=== PATIENT | male | born 1990 | race Caucasian/White ===

== ENCOUNTER 2018-07-02 18:20 | Emergency (ER) | payer MEDICAID, OTHER ==
[2018-07-02 18:28] VITALS: BP 132/89
[2018-07-02] MEDS ORDERED: Cyclobenzaprine TAB* 10 MG PO ONE (18:46)
[2018-07-02] MEDS ORDERED: Ibuprofen TAB* 400 MG PO ONE (18:46)
--- NOTE | 2018-07-02 18:51 | UC ---
Back Pain HPI - HPI Summary HPI Summary: fall 1 week ago on ice landing flat on his back, no loc no pain or weakness in his extremities----muscle on back sides of his spine hurt "and lock up" after working all day--- - History of Current Complaint Chief Complaint: UCBackPain Stated Complaint: BACK PAIN Time Seen by Provider: 07/02/18 18:34 Hx Obtained From: Patient Onset/Duration: Sudden Onset, Lasting Weeks - 1 Timing: Constant Pain Intensity: 8 Pain Scale Used: 0-10 Numeric Back Pain: Is Discrete @ Character: Aching, Stiffness Aggravating Factor(s): Movement, Other - working Alleviating Factor(s): Nothing Associated Signs And Symptoms: Positive: Negative - Allergies/Home Medications Allergies/Adverse Reactions: Allergies Allergy/AdvReac Type Severity Reaction Status Date / Time No Known Allergies Allergy Verified 07/02/18 18:28 PMH/Surg Hx/FS Hx/Imm Hx Previously Healthy: Yes - Surgical History Surgical History: Yes Surgery Procedure, Year, and Place: EAR TUBES. DEVIATED SEPTUM REPAIR. LEFT ANKLE - Family History Known Family History: Positive: Unknown - Patient is adopted, unsure of his FHx. , Other - Bipolar disorder, depression, alcoholism, gram w/ ovarian ca - Social History Occupation: Employed Full-time Lives: With Family Alcohol Use: None Alcohol Amount: no alcohol for 3 months Substance Use Type: None Smoking Status (MU): Current Every Day Smoker Type: Cigarettes Amount Used/How Often: 2-3 CIG/DAY Review of Systems All Other Systems Reviewed And Are Negative: Yes Constitutional: Positive: Negative Skin: Positive: Negative Eyes: Positive: Negative ENT: Positive: Negative Respiratory: Positive: Negative Cardiovascular: Positive: Negative Gastrointestinal: Positive: Negative Genitourinary: Positive: Negative Motor: Positive: Negative Neurovascular: Positive: Negative Musculoskeletal: Positive: Arthralgia - mid back, Myalgia Neurological: Positive: Negative Psychological: Positive: Negative Is Patient Immunocompromised?: No Physical Exam Triage Information Reviewed: Yes Appearance: Well-Appearing, No Pain Distress, Well-Nourished Vital Signs: Initial Vital Signs Temp 97.8 F 07/02/18 18:25 Pulse 102 07/02/18 18:25 Resp 18 07/02/18 18:25 BP 132/89 07/02/18 18:25 Pulse Ox 99 07/02/18 18:25 Vital Signs Reviewed: Yes Eye Exam: Normal Eyes: Positive: Conjunctiva Clear ENT Exam: Normal ENT: Positive: Normal ENT inspection, Hearing grossly normal. Negative: Trismus , Muffled voice, Hoarse voice Dental Exam: Normal Neck exam: Normal Neck: Positive: Supple, Nontender, No Lymphadenopathy Respiratory Exam: Normal Respiratory: Positive: Chest non-tender, Lungs clear, Normal breath sounds, No respiratory distress, No accessory muscle use Cardiovascular Exam: Normal Cardiovascular: Positive: RRR, No Murmur, Pulses Normal, Brisk Capillary Refill Musculoskeletal Exam: Normal Musculoskeletal: Positive: Strength Intact, ROM Intact, No Edema Neurological Exam: Normal Neurological: Positive: Alert, Muscle Tone Normal Psychological Exam: Normal Skin Exam: Normal Diagnostics - Radiology No standard instances Radiology Interpretation Completed By: ED Physician Summary of Radiographic Findings: possible lumbar compression Back Pain Course/Dx - Course Course Of Treatment: nsaids, flexeril follow with pcp back exercises - Differential Dx/Diagnosis Provider Diagnosis: Back pain Discharge - Sign-Out/Discharge Documenting (check all that apply): Patient Departure All imaging exams completed and their final reports reviewed: No - Discharge Plan Condition: Stable Disposition: HOME Prescriptions: Cyclobenzaprine TAB* [Flexeril 10 MG TAB*] 10 mg PO TID PRN #15 tab PRN Reason: muscle spasm Ibuprofen TAB* [Motrin TAB* 800 MG] 800 mg PO Q8H PRN #30 tab PRN Reason: pain Patient Education Materials: Core Strengthening Exercises (GEN), Back Pain (ED) Referrals: Care [facility] [Outside] - 3 Days - Billing Disposition and Condition Condition: STABLE Disposition: Home
--- NOTE | 2018-07-03 07:15 | ED ---
Progress - Progress Note Progress Note: Final x-ray read of the T-spine: No fracture Preliminary read as possible lumbar compression RN to call the patient and advise on final results Course/Dx - Course Course Of Treatment: nsaids, flexeril follow with pcp back exercises - Diagnoses Provider Diagnoses: Back pain Discharge - Sign-Out/Discharge Documenting (check all that apply): Post-Discharge Follow Up All imaging exams completed and their final reports reviewed: Yes - Discharge Plan Condition: Stable Disposition: HOME Prescriptions: Cyclobenzaprine TAB* [Flexeril 10 MG TAB*] 10 mg PO TID PRN #15 tab PRN Reason: muscle spasm Ibuprofen TAB* [Motrin TAB* 800 MG] 800 mg PO Q8H PRN #30 tab PRN Reason: pain Patient Education Materials: Back Pain (ED), Core Strengthening Exercises (GEN) Referrals: [facility] [Outside] - 3 Days - Billing Disposition and Condition Condition: STABLE Disposition: Home
== END 2018-07-02 19:31 | disposition home or self-care (01) ==
LOC: UCEAST 18:20
DX: M54.9 Dorsalgia, unspecified (principal); F17.210 Nicotine dependence, cigarettes, uncomplicated
CPT/HCPCS: 72080; 99212; A9270-GY; G0463

== ENCOUNTER 2018-11-29 19:19 | Emergency (ER) | payer MEDICAID, OTHER ==
[2018-11-29 19:31] VITALS: BP 112/66
[2018-11-29] MEDS ORDERED: Famotidine TAB* 20 MG PO ONE (21:20)
[2018-11-29] MEDS ORDERED: Ondansetron ODT TAB* 4 MG PO ONE (21:20)
--- NOTE | 2018-11-29 21:20 | UC ---
Abdominal Pain Male HPI - HPI Summary HPI Summary: 28-year-old male comes in with a chief complaint of intermittent epigastric pain nausea and vomiting. Been going on for weeks is been getting worse. Every time he eats something spicy he gets epigastric pain and nausea sometimes he vomits. No fevers or chills. No lower abdominal pain. Pepto-Bismol does help some with the pain. Eating non-spicy things does not bother her stomach. No blood in the vomit or in his stools. - History of Current Complaint Chief Complaint: UCGeneralIllness Stated Complaint: NAUSEA Time Seen by Provider: 11/29/18 21:07 Pain Intensity: 0 - Allergies/Home Medications Allergies/Adverse Reactions: Allergies Allergy/AdvReac Type Severity Reaction Status Date / Time No Known Allergies Allergy Verified 11/29/18 19:31 PMH/Surg Hx/FS Hx/Imm Hx Previously Healthy: Yes - Surgical History Surgical History: Yes Surgery Procedure, Year, and Place: EAR TUBES. DEVIATED SEPTUM REPAIR. LEFT ANKLE - Family History Known Family History: Positive: Unknown - Patient is adopted, unsure of his FHx. , Other - Bipolar disorder, depression, alcoholism, gram w/ ovarian ca - Social History Alcohol Use: Occasionally Alcohol Amount: drank last night Substance Use Type: None Smoking Status (MU): Light Every Day Tobacco Smoker Type: Cigarettes Amount Used/How Often: 2-3 CIG/DAY Review of Systems All Other Systems Reviewed And Are Negative: Yes Constitutional: Positive: Negative Skin: Positive: Negative Eyes: Positive: Negative ENT: Positive: Negative Respiratory: Positive: Negative Cardiovascular: Positive: Negative Gastrointestinal: Positive: Abdominal Pain, Vomiting, Nausea Genitourinary: Positive: Negative Motor: Positive: Negative Neurovascular: Positive: Negative Musculoskeletal: Positive: Negative Neurological: Positive: Negative Psychological: Positive: Negative Is Patient Immunocompromised?: No Physical Exam Triage Information Reviewed: Yes Appearance: Well-Appearing, No Pain Distress, Well-Nourished Vital Signs: Initial Vital Signs Temp 98.5 F 11/29/18 19:26 Pulse 77 11/29/18 19:26 Resp 12 11/29/18 19:26 BP 112/66 11/29/18 19:26 Pulse Ox 98 11/29/18 19:26 Vital Signs Reviewed: Yes Eye Exam: Normal Eyes: Positive: Conjunctiva Clear Neck: Positive: Supple Respiratory: Positive: Lungs clear, Normal breath sounds, No respiratory distress Cardiovascular: Positive: RRR Abdomen Description: Positive: Soft, Other: - MILD TENDERNESS EPIGASTRIUM. Negative: CVA Tenderness (R), CVA Tenderness (L) Bowel Sounds: Positive: Present Musculoskeletal Exam: Normal Musculoskeletal: Positive: Strength Intact, ROM Intact Neurological Exam: Normal Neurological: Positive: Alert, Muscle Tone Normal Psychological Exam: Normal Psychological: Positive: Age Appropriate Behavior Skin Exam: Normal Abd Pain Male Course/Dx - Differential Dx/Clinical Impression Provider Diagnosis: Epigastric pain, Nausea & vomiting, GERD (gastroesophageal reflux disease) Discharge - Sign-Out/Discharge Documenting (check all that apply): Patient Departure All imaging exams completed and their final reports reviewed: No Studies - Discharge Plan Condition: Stable Disposition: HOME Prescriptions: Omeprazole 20 mg PO BID #30 capsule. Ondansetron ODT TAB* [Zofran 4 MG Odt TAB*] 4 mg PO Q6H PRN #10 tab.odt PRN Reason: Nausea Patient Education Materials: Gastroesophageal Reflux Disease (ED), Acute Nausea and Vomiting (ED), Epigastric Pain (ED) Referrals: [facility] [place] [facility]IAN REFERRAL [Outside] [facility] [Provider Group] Additional Instructions: FOLLOW UP WITH YOUR DOCTOR. GO TO THE EMERGENCY DEPARTMENT IF YOUR CONDITION WORSENS; PAIN, FEVER, BLOOD IN YOUR VOMIT OR STOOL, YOU FEEL ILL OR ANY QUESTIONS OR CONCERNS. - Billing Disposition and Condition Condition: STABLE Disposition: Home
== END 2018-11-29 21:40 | disposition home or self-care (01) ==
LOC: UCEAST 19:19
DX: R10.13 Epigastric pain (principal); R11.2 Nausea with vomiting, unspecified; K21.9 Gastro-esophageal reflux disease without esophagitis; F17.210 Nicotine dependence, cigarettes, uncomplicated
CPT/HCPCS: 99212; A9270-GY; G0463

== ENCOUNTER → 2018-12-11 | Emergency (ER) | payer OTHER ==
[~2018-12-11] MED LIST: Fluconazole 150 MG TAB PO ONE; Ketorolac INJ* 30 MG/ML 1 ML VIAL IV PUSH ONE; Morphine 4 MG/ML VIAL (1 ml) 4 MG/ML VIAL IV ONE; NS 0.9% 1000 ML** 1,000 ML IV ONE; Ondansetron INJ* 2 MG/ML VIAL IV ONE; oxyCODONE/Acetamin 5/325 MG* TAB PO ONE
[2018-12-11 14:33] LABS: ABS Basophils 0.1 10^3/ul (0-0.2); ABS Lymphocytes 1.8 10^3/ul (1.0-4.8); ABS Monocytes 0.4 10^3/ul (0-0.8); ABS Neutrophils 4.2 10^3/ul (1.5-7.7); Eosinophil % 0.3 %; Hematocrit 49 % (42-52); Hemoglobin 16.4 g/dL (14.0-18.0); Lymphocyte % 27.8 %; Mean Corpuscular HGB Conc 34 g/dL (31-36); Mean Corpuscular Hemoglobin 30 pg (27-31); Mean Corpuscular Volume 90 fL (80-94); Mean Platelet Volume 8.4 fL (7.4-10.4); Platelet Count 238 10^3/uL (150-450); Red Blood Count 5.39 10^6 /uL (4.18-5.48); Red Cell Distribution Width 14 % (10-15); White Blood Count 6.5 10^3/uL (3.5-10.8)
[2018-12-11 14:40] LABS: Activated Partial Thrombo Time 31.5 seconds (26.0-38.0); INR 0.97 (0.82-1.09)
[2018-12-11 14:43] LABS: ALT 29 U/L (7-52); AST 18 U/L (13-39); Albumin/Globulin Ratio 2.1 (1-3); Alkaline Phosphatase 44 U/L (34-104); Anion Gap 8 mmol/L (2-11); Blood Urea Nitrogen 7 mg/dL (6-24); C Reactive Protein < 1.00 mg/L (<8.01); CO2 Carbon Dioxide 26 mmol/L (22-32); Calcium 9.7 mg/dL (8.6-10.3); Chloride 107 mmol/L (101-111); EGFR African American 125.7 (>60); EGFR Non-African American 103.9 (>60); Globulin 2.4 g/dL (2-4); Glucose 104 mg/dL (70-100); Sodium 141 mmol/L (135-145); Total Protein 7.4 g/dL (6.4-8.9)
--- NOTE | 2018-12-11 15:08 | ED ---
GI/ HPI - HPI Summary HPI Summary: This patient is a 28 year old M presenting to ED with a chief complaint of R flank pain that radiates into the R testicle since yesterday. The pain has worsened throughout the day. The pain is described as stabbing. Patient has a history of kidney stones and reports this feels similar. He took Ibuprofen yesterday without relief. The patient rates the pain 10/10 in severity. Symptoms aggravated by nothing. Symptoms alleviated by nothing. Patient reports urinary urgency, hematuria, fevers, chills. Patient denies N/V. - History of Current Complaint Chief Complaint: EDFlankPain Time Seen by Provider: 12/11/18 14:46 Stated Complaint: PASSING A KIDNEY STONE PER PT Hx Obtained From: Patient Onset/Duration: Started Days Ago - Yesteray, Still Present, Worse Since Timing: Constant Severity: Severe Current Severity: Severe Pain Intensity: 10 Location of Pain: Radiates to: - R testicle, Flank - R Pain Characteristics: Other: - Stabbing Associated Signs and Symptoms: Positive: Fever, Hematuria, Flank Pain, Chills, Other: - Urgency. Negative: Nausea, Vomiting Aggravating Factor(s): Nothing Alleviating Factor(s): Nothing - Allergy/Home Medications Allergies/Adverse Reactions: Allergies Allergy/AdvReac Type Severity Reaction Status Date / Time No Known Allergies Allergy Verified 12/11/18 11:00 Home Medications: Home Medications hydrOXYzine HCL TAB* [Atarax TAB 50 MG *] 50 mg PO BEDTIME 12/11/18 [History Confirmed 12/11/18] PMH/Surg Hx/FS Hx/Imm Hx Endocrine/Hematology History: Denies: Hx Diabetes Cardiovascular History: Denies: Hx Congestive Heart Failure, Hx Hypertension Respiratory History: Reports: Hx Asthma History: Denies: Hx Renal Disease Psychiatric History: Reports: Hx of Violent Episodes Against Others, Hx Substance Abuse - ETOH Denies: Hx Eating Disorder - Surgical History Surgery Procedure, Year, and Place: EAR TUBES. DEVIATED SEPTUM REPAIR. LEFT ANKLE - Immunization History Date of Tetanus Vaccine: up to date Infectious Disease History: No Infectious Disease History: Denies: Traveled Outside the [place] in Last 30 Days - Family History Known Family History: Positive: Unknown - Patient is adopted, unsure of his FHx. , Other - Bipolar disorder, depression, alcoholism, gram w/ ovarian ca - Social History Alcohol Use: Occasionally Alcohol Amount: drank last night Hx Substance Use: Yes Substance Use Type: Reports: None Hx Tobacco Use: Yes Smoking Status (MU): Light Every Day Tobacco Smoker Type: Cigarettes Amount Used/How Often: 2-3 CIG/DAY Review of Systems Positive: Fever, Chills Negative: Vomiting, Nausea Positive: flank pain - R, hematuria, urgency All Other Systems Reviewed And Are Negative: Yes Physical Exam - Summary Physical Exam Summary: GENERAL: Patient is a well-developed and nourished M who is lying uncomfortably on the stretcher secondary to pain HEAD AND FACE: Normocephalic EYES: PERRLA, EOMI x 2. EARS: Hearing grossly intact. MOUTH: Oropharynx within normal limits. NECK: Supple, trachea is midline, no adenopathy, no JVD, no carotid bruit. CHEST: Symmetric, no tenderness at palpation LUNGS: Clear to auscultation bilaterally. No wheezing or crackles. CVS: Regular rate and rhythm, S1 and S2 present, no murmurs or gallops appreciated. ABDOMEN: Soft, non-tender. Bowel sounds are normal. No abnormal abdominal pulsations. EXTREMITIES: Full ROM in all major joints, no edema, no cyanosis or clubbing. NEURO: Alert and oriented x 3. No acute neurological deficits. Speech is normal and follows commands. SKIN: Dry and warm Triage Information Reviewed: Yes Vital Signs On Initial Exam: Initial Vitals Temp Pulse Resp BP Pulse Ox 99.7 F 72 16 142/95 99 12/11/18 10:57 12/11/18 10:57 12/11/18 10:57 12/11/18 10:57 12/11/18 10:57 Vital Signs Reviewed: Yes Diagnostics - Vital Signs Vital Signs Temp Pulse Resp BP Pulse Ox 12/11/18 12:50 98.9 F 58 17 127/92 100 12/11/18 10:57 99.7 F 72 16 142/95 99 - Laboratory Lab Results: Lab Results 12/11/18 12/11/18 12/11/18 Range/Units 14:10 14:10 14:10 WBC 6.5 (3.5-10.8) 10^3/uL RBC 5.39 (4.18-5.48) 10^6 /uL Hgb 16.4 (14.0-18.0) g/dL Hct 49 (42-52) % MCV 90 (80-94) fL MCH 30 (27-31) pg MCHC 34 (31-36) g/dL RDW 14 (10-15) % Plt Count 238 (150-450) 10^3/uL MPV 8.4 (7.4-10.4) fL Neut % (Auto) 64.9 % Lymph % (Auto) 27.8 % [place] % (Auto) 5.9 % Eos % (Auto) 0.3 % Baso % (Auto) 1.1 % Absolute Neuts (auto) 4.2 (1.5-7.7) 10^3/ul Absolute Lymphs (auto) 1.8 (1.0-4.8) 10^3/ul Absolute Monos (auto) 0.4 (0-0.8) 10^3/ul Absolute Eos (auto) 0.0 (0-0.6) 10^3/ul Absolute Basos (auto) 0.1 (0-0.2) 10^3/ul Absolute Nucleated RBC 0.0 10^3/ul Nucleated RBC % 0.0 INR (Anticoag Therapy) (0.82-1.09) APTT (26.0-38.0) seconds Sodium 141 (135-145) mmol/L Potassium 4.0 (3.5-5.0) mmol/L Chloride 107 (101-111) mmol/L Carbon Dioxide 26 (22-32) mmol/L Anion Gap 8 (2-11) mmol/L BUN 7 (6-24) mg/dL Creatinine 0.88 (0.67-1.17) mg/dL Est GFR ( Amer) 125.7 (>60) Est GFR (Non-Af Amer) 103.9 (>60) BUN/Creatinine Ratio 8.0 (8-20) Glucose 104 H (70-100) mg/dL Lactic Acid 1.1 (0.5-2.0) mmol/L Calcium 9.7 (8.6-10.3) mg/dL Total Bilirubin 0.90 (0.2-1.0) mg/dL AST 18 (13-39) U/L ALT 29 (7-52) U/L Alkaline Phosphatase 44 (34-104) U/L C-Reactive Protein < 1.00 (<8.01) mg/L Total Protein 7.4 (6.4-8.9) g/dL Albumin 5.0 (3.2-5.2) g/dL Globulin 2.4 (2-4) g/dL Albumin/Globulin Ratio 2.1 (1-3) Lipase 32 (11.0-82.0) U/L Blood Type Antibody Screen 12/11/18 12/11/18 Range/Units 14:11 14:11 WBC (3.5-10.8) 10^3/uL RBC (4.18-5.48) 10^6 /uL Hgb (14.0-18.0) g/dL Hct (42-52) % MCV (80-94) fL MCH (27-31) pg MCHC (31-36) g/dL RDW (10-15) % Plt Count (150-450) 10^3/uL MPV (7.4-10.4) fL Neut % (Auto) % Lymph % (Auto) % [place] % (Auto) % Eos % (Auto) % Baso % (Auto) % Absolute Neuts (auto) (1.5-7.7) 10^3/ul Absolute Lymphs (auto) (1.0-4.8) 10^3/ul Absolute Monos (auto) (0-0.8) 10^3/ul Absolute Eos (auto) (0-0.6) 10^3/ul Absolute Basos (auto) (0-0.2) 10^3/ul Absolute Nucleated RBC 10^3/ul Nucleated RBC % INR (Anticoag Therapy) 0.97 (0.82-1.09) APTT 31.5 (26.0-38.0) seconds Sodium (135-145) mmol/L Potassium (3.5-5.0) mmol/L Chloride (101-111) mmol/L Carbon Dioxide (22-32) mmol/L Anion Gap (2-11) mmol/L BUN (6-24) mg/dL Creatinine (0.67-1.17) mg/dL Est GFR ( Amer) (>60) Est GFR (Non-Af Amer) (>60) BUN/Creatinine Ratio (8-20) Glucose (70-100) mg/dL Lactic Acid (0.5-2.0) mmol/L Calcium (8.6-10.3) mg/dL Total Bilirubin (0.2-1.0) mg/dL AST (13-39) U/L ALT (7-52) U/L Alkaline Phosphatase (34-104) U/L C-Reactive Protein (<8.01) mg/L Total Protein (6.4-8.9) g/dL Albumin (3.2-5.2) g/dL Globulin (2-4) g/dL Albumin/Globulin Ratio (1-3) Lipase (11.0-82.0) U/L Blood Type A Positive Antibody Screen Pending Result Diagrams: 12/11/18 14:10 12/11/18 14:10 Lab Statement: Any lab studies that have been ordered have been reviewed, and results considered in the medical decision making process. - CT A/P CT Interpretation Completed By: Radiologist Summary of CT Findings: Calculus in the mid right ureter at L3-L4 level measuring up to 2 mm. Right hydronephrosis and hydroureter is noted. Dr. Nieto has reviewed this radiology report. GIGU Course/Dx - Course Course Of Treatment: This patient is a 28 year old M presenting to ED with a chief complaint of R flank pain that radiates into the R testicle since yesterday. CT A/P revealed Calculus in the mid right ureter at L3-L4 level measuring up to 2 mm. Right hydronephrosis and hydroureter is noted. In the ED course, patient received Toradol, fluids, Zofran, and Diflucan. Blood work and UA obtained. I discussed results with patient, and he reports feeling better. He is hemodynamically stable and safe for discharge. Strict return precautions given and he will otherwise follow up with his PCP. Patient will be discharged home with dx of kidney stone. - Diagnoses Provider Diagnoses: Kidney stone Discharge - Sign-Out/Discharge Documenting (check all that apply): Patient Departure - Discharge Patient Received Moderate/Deep Sedation with Procedure: No - Discharge Plan Condition: Stable Disposition: HOME Prescriptions: Ibuprofen 800 mg PO TID #24 tablet oxyCODONE/Acetamin 5/325 MG* [Percocet 5/325 TAB*] 1 tab PO Q6H PRN #12 tab MDD 4 PRN Reason: Pain Tamsulosin HCl [Flomax] 0.4 mg PO DAILY #30 cap.er.24h Patient Education Materials: Kidney Stones (ED) Referrals: [facility] [place] [facility] REFERRAL [Outside] - 3 Days Additional Instructions: Follow up with your primary care physician in 1-3 days. RETURN TO THE EMERGENCY DEPARTMENT FOR CHANGING OR WORSENING SYMPTOMS. - Billing Disposition and Condition Condition: STABLE Disposition: Home - Attestation Statements Document Initiated by Scribe: Yes Documenting Scribe: Ishan Cunha Provider For Whom Scribe is Documenting (Include Credential): Olman Nieto MD Scribe Attestation: Ishan Olivia, scribed for Olman Nieto MD on 12/13/18 at 0751. Scribe Documentation Reviewed: Yes Provider Attestation: The documentation as recorded by the Ishan gar accurately reflects the service I personally performed and the decisions made by , Olman Nieto MD Status of Scribe Document: Viewed
[2018-12-11 17:06] LABS: Urine Appearance Clear; Urine Bacteria Absent (Absent); Urine Bilirubin Negative (Negative); Urine Blood 3+ (Negative); Urine Color Yellow; Urine Glucose Negative (Negative); Urine Ketones Negative (Negative); Urine Nitrite Negative (Negative); Urine Protein Negative (Negative); Urine Red Blood Cell 3+(>10/hpf) (Absent); Urine Specific Gravity 1.011 (1.010-1.030); Urine Urobilinogen Negative (Negative); Urine White Blood Cell Trace(0-5/hpf) (Absent)
[2018-12-11 17:41] VITALS: BP 127/75
== END | disposition home or self-care (01) ==
LOC: ED 10:55
DX: N13.2 Hydronephrosis with renal and ureteral calculous obstruction (principal); F17.210 Nicotine dependence, cigarettes, uncomplicated; Z87.442 Personal history of urinary calculi
CPT/HCPCS: 36415; 74176; 80053; 81003; 81015; 83605; 83690; 85025; 85610; 85730; 86140; 86850; 86900; 86901; 87086; 96361; 96374; 96375; 99283; A9270-GY; J1885; J2270; J2405

== ENCOUNTER 2019-07-22 19:53 | Emergency (ER) | payer MEDICAID, OTHER ==
[2019-07-22 20:07] VITALS: BP 133/89
[2019-07-22] MEDS ORDERED: DOXYcycline CAP(*) 100 MG PO ONE ×2 (20:21→20:23)
[2019-07-22] MEDS ORDERED: hydrOXYzine HCL TAB* 25 MG PO ONE (20:22)
[2019-07-22] MEDS ORDERED: Neomyc/Polym/HC 1% OTIC SUSP* **OTIC LEFT EAR ONE (20:22)
--- NOTE | 2019-07-22 20:26 | UC ---
Ear Complaint HPI - HPI Summary HPI Summary: 29-year-old male comes in with a chief complaint of left ear pain. Started to 3 days ago. Is been getting worse. No fevers or chills. Patient reports he has a history of recurrent ear infections. He has had ear tubes in both the ears. 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 He believes it was treated successfully with doxycycline. Patient also reports having anxiety and panic attacks for the last 3 days. He wonders if it has to do with the ear pain. Patient does have a history of panic attacks although usually at home continue to bother him for several days. - History of Current Complaint Chief Complaint: UCEar Stated Complaint: EAR ACHE Time Seen by Provider: 07/22/19 19:54 Pain Intensity: 5 - Allergies/Home Medications Allergies/Adverse Reactions: Allergies Allergy/AdvReac Type Severity Reaction Status Date / Time No Known Allergies Allergy Verified 12/11/18 11:00 Home Medications: Home Medications DOXYcycline CAP(*) [DOXYcycline 100MG CAP(*)] 100 mg PO BID #18 cap 07/22/19 [Rx ] Ofloxacin 0.3% (Ear Drop)* [Floxin 0.3% OTIC.EDOUARD (Ear Drop)] 5 drop LEFT EAR BID #1 btl 07/22/19 [Rx] diphenhydrAMINE HCl [Z-Sleep] 07/22/19 [History] hydrOXYzine HCL TAB* [Atarax TAB 50 MG *] 50 mg PO QID PRN #20 tab 07/22/19 [Rx] PMH/Surg Hx/FS Hx/Imm Hx Previously Healthy: Yes - RECURRENT LEFT EAR INFECTIONS Other Endocrine History: LEFT EAR MRSA Psychological History: Anxiety Other Psychological History: PANIC ATTACKS - Surgical History Surgical History: None Surgery Procedure, Year, and Place: EAR TUBES. DEVIATED SEPTUM REPAIR. LEFT ANKLE - Family History Known Family History: Positive: Unknown - Patient is adopted, unsure of his FHx. , Other - Bipolar disorder, depression, alcoholism, gram w/ ovarian ca - Social History Alcohol Use: Occasionally Alcohol Amount: drank last night Substance Use Type: Marijuana Smoking Status (MU): Current Some Day Smoker Type: Cigarettes Amount Used/How Often: 2-3 CIG/DAY Review of Systems All Other Systems Reviewed And Are Negative: Yes Constitutional: Positive: Other - SEE HPI Skin: Positive: Negative Eyes: Positive: Negative ENT: Positive: Ear Ache Respiratory: Positive: Negative Cardiovascular: Positive: Negative Gastrointestinal: Positive: Negative Motor: Positive: Negative Neurovascular: Positive: Negative Musculoskeletal: Positive: Negative Neurological/Mental Status: Positive: Negative Psychological: Positive: Anxious Is Patient Immunocompromised?: No Physical Exam Triage Information Reviewed: Yes Appearance: Well-Appearing, No Pain Distress, Well-Nourished Vital Signs: Initial Vital Signs Temp 98.7 F 07/22/19 20:00 Pulse 61 07/22/19 20:00 Resp 16 07/22/19 20:00 BP 133/89 07/22/19 20:00 Pulse Ox 100 07/22/19 20:00 Vital Signs Reviewed: Yes Eye Exam: Normal Eyes: Positive: Conjunctiva Clear ENT: Positive: TM bulging - LEFT, TM red - LEFT, Other - Test palpation of the left tragus. Neck: Positive: Supple Respiratory: Positive: Lungs clear, Normal breath sounds, No respiratory distress Cardiovascular: Positive: RRR Musculoskeletal: Positive: Strength Intact, ROM Intact Neurological: Positive: Alert, Muscle Tone Normal Psychological: Positive: Normal Response To Family, Age Appropriate Behavior Skin Exam: Normal Ear Complaint Course/Dx - Course Course Of Treatment: Will treat with doxycycline as the patient reports he's had MRSA in that ear in the past and he believes it was doxycycline that treated successfully. Because of the tenderness to palpation of the tragus were also start antibiotic eardrops. To prescription for hydroxyzine to be used if needed for the anxiety and panic attacks. Also let the patient know that if anything got worse he needs to the emergency department. - Differential Dx/Diagnosis Provider Diagnosis: Left otitis media, Panic attacks Discharge ED - Sign-Out/Discharge Documenting (check all that apply): Patient Departure All imaging exams completed and their final reports reviewed: No Studies - Discharge Plan Condition: Stable Disposition: HOME Prescriptions: DOXYcycline CAP(*) [DOXYcycline 100MG CAP(*)] 100 mg PO BID #18 cap hydrOXYzine HCL TAB* [Atarax TAB 50 MG *] 50 mg PO QID PRN #20 tab PRN Reason: Anxiety Ofloxacin 0.3% (Ear Drop)* [Floxin 0.3% OTIC.EDOUARD (Ear Drop)] 5 drop LEFT EAR BID #1 btl Patient Education Materials: Ear Infection (ED), Panic Attack (ED) Referrals: Danny Solomon MD [Medical Doctor] - Jaxson Jeong MD [Medical Doctor] - Additional Instructions: FOLLOW UP WITH YOUR DOCTOR. FOLLOW UP WITH ENT. GO TO THE EMERGENCY DEPARTMENT IF NOT IMPROVED OR WORSE; PANIC ATTACKS, PAIN, FEVER, YOU FEEL ILL OR ANY QUESTIONS OR CONCERNS. - Billing Disposition and Condition Condition: STABLE Disposition: Home
== END 2019-07-22 20:38 | disposition home or self-care (01) ==
LOC: UCEAST 19:53
DX: H66.92 Otitis media, unspecified, left ear (principal); F41.0 Panic disorder [episodic paroxysmal anxiety]; F17.210 Nicotine dependence, cigarettes, uncomplicated; Z79.899 Other long term (current) drug therapy
CPT/HCPCS: 99213; A9270-GY; G0463

== ENCOUNTER 2019-07-27 22:12 | Emergency (ER) | payer MEDICAID ==
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
[2019-07-28 00:06] VITALS: BP 123/75
== END 2019-07-28 00:05 | disposition home or self-care (01) ==
LOC: ED 22:12
DX: F11.10 Opioid abuse, uncomplicated (principal); F19.10 Other psychoactive substance abuse, uncomplicated; F17.210 Nicotine dependence, cigarettes, uncomplicated; R00.1 Bradycardia, unspecified
CPT/HCPCS: 93005; 99282

== ENCOUNTER 2019-08-09 19:14 | Emergency (ER) | payer MEDICAID ==
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
[2019-08-09 20:26] VITALS: BP 148/86
--- NOTE | 2019-08-10 10:13 | UC ---
- Progress Note Progress Note: wet read correct Course/Dx - Diagnoses Provider Diagnoses: Knee pain Discharge ED - Sign-Out/Discharge Documenting (check all that apply): Post-Discharge Follow Up All imaging exams completed and their final reports reviewed: Yes - Discharge Plan Condition: Stable Disposition: HOME Patient Education Materials: Knee Pain (ED) Referrals: Radha Ruiz MD [Medical Doctor] - If Needed No Primary Care Phys,NOPCP [Primary Care Provider] - Additional Instructions: The x-ray of your knee appears normal this evening, but the radiologist will read this in the morning and we will call you with any changes to your treatment plan. 1) Rest, Ice, and elevate your knee to reduce pain and swelling 2) Use the knee immobilizer and crutches as much as possible for the next 2-3 days and then weight bear as tolerated. 3) If your symptoms do not improve within 5-7 days, I recommend that you call Orthopedics at the number below to schedule an appointment for a recheck 4) May take ibuprofen as directed for discomfort - Billing Disposition and Condition Condition: STABLE Disposition: Home
== END 2019-08-09 20:40 | disposition home or self-care (01) ==
LOC: UCEAST 19:14
DX: M25.561 Pain in right knee (principal); T14.8XXA Other injury of unspecified body region, initial encounter; Y04.0XXA Assault by unarmed brawl or fight, initial encounter; Y92.9 Unspecified place or not applicable; F17.210 Nicotine dependence, cigarettes, uncomplicated
CPT/HCPCS: 99213; G0463

== ENCOUNTER 2019-08-13 17:49 | Emergency (ER) | payer MEDICAID ==
[2019-08-13] MEDS ORDERED: Benzonatate CAP* 100 MG PO ONE (18:41)
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
[2019-08-13] MEDS ORDERED: Albuterol HFA INHALER* 8 gm MDI INH ONE (18:47)
[2019-08-13 19:06] VITALS: BP 132/90
[2019-08-13 19:23] LABS: Influenza A Molecular Negative (Negative); Influenza B Molecular Negative (Negative)
== END 2019-08-13 20:09 | disposition home or self-care (01) ==
LOC: ED 17:49
DX: J98.8 Other specified respiratory disorders (principal); J45.909 Unspecified asthma, uncomplicated; F17.210 Nicotine dependence, cigarettes, uncomplicated
CPT/HCPCS: 71045; 99282; A9270-GY; U0002

== ENCOUNTER 2019-09-02 05:24 | Emergency (ER) | payer MEDICAID ==
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
--- NOTE | 2019-09-02 05:50 | ED ---
Substance Abuse/Use - HPI Summary HPI Summary: Pt. is a 29 y.o male who presents to the ER for complaints of alcohol withdrawal. Pt. states has a hx of binge drinking. Pt. states his last drink was about 2 days ago. Pt. states he was drinking x week very heavily. Pt. noted intermittent THC use and cocaine use. Pt. notes his friend gave him a suboxone yesterday to help him relax. Pt. states he has never been admitted for ETOH withdrawal and has never had a withdrawal seizure. Pt. state he feels very shaky today and very anxious. Pt. notes ongoing shortness of breath and was tested for COVID 3 weeks ago which was negative. Denies other past medical hx. Denies cough or fever. Sxs are moderate in severity. No current modifying factors. - History Of Current Complaint Chief Complaint: EDGeneral Stated Complaint: ALCOHOL WITHDRAWL PER PT Time Seen by Provider: 09/02/19 05:39 Hx Obtained From: Patient - Allergies/Home Medications Allergies/Adverse Reactions: Allergies Allergy/AdvReac Type Severity Reaction Status Date / Time No Known Allergies Allergy Verified 09/02/19 05:45 Home Medications: Home Medications NK [No Home Medications Reported] 09/02/19 [History Confirmed 09/02/19] PMH/Surg Hx/FS Hx/Imm Hx Previously Healthy: Yes Endocrine/Hematology History: Denies: Hx Diabetes Cardiovascular History: Denies: Hx Congestive Heart Failure, Hx Hypertension Respiratory History: Reports: Hx Asthma History: Denies: Hx Renal Disease Sensory History: Denies: Hx Eye Prosthesis, Hx Deafness Opthamlomology History: Denies: Hx Eye Prosthesis Neurological History: Denies: Hx Dementia Psychiatric History: Reports: Hx of Violent Episodes Against Others, Hx Substance Abuse - ETOH Denies: Hx Eating Disorder - Surgical History Surgery Procedure, Year, and Place: EAR TUBES. DEVIATED SEPTUM REPAIR. LEFT ANKLE - Immunization History Date of Tetanus Vaccine: up to date Infectious Disease History: No Infectious Disease History: Denies: Traveled Outside the [place] in Last 30 Days - Family History Known Family History: Positive: Unknown - Patient is adopted, unsure of his FHx. , Other - Bipolar disorder, depression, alcoholism, gram w/ ovarian ca, Non- Contributory - Social History Occupation: Unemployed Lives: With Family Alcohol Use: " binge drinker" Alcohol Amount: last drink 09/01/2019 0000 Hx Substance Use: Yes Substance Use Type: Reports: Marijuana Hx Tobacco Use: Yes Smoking Status (MU): Current Every Day Smoker Type: Cigarettes Amount Used/How Often: 2-3 CIG/DAY Review of Systems Constitutional: Negative Negative: Fever, Chills Cardiovascular: Negative Negative: Palpitations, Chest Pain Positive: Shortness Of Breath. Negative: Cough Gastrointestinal: Negative Positive: Anxious All Other Systems Reviewed And Are Negative: Yes Physical Exam Triage Information Reviewed: Yes Vital Signs On Initial Exam: Initial Vitals Temp Pulse Resp BP Pulse Ox 98.4 F 67 18 139/93 98 09/02/19 05:26 09/02/19 05:26 09/02/19 05:26 09/02/19 05:26 09/02/19 05:26 Vital Signs Reviewed: Yes Appearance: Positive: Well-Nourished - Pt. sitting up in bed, very anxious. Shaking. Skin: Positive: Warm, Dry Head/Face: Positive: Normal Head/Face Inspection Eyes: Positive: Normal, EOMI Neck: Positive: Supple Respiratory/Lung Sounds: Positive: Clear to Auscultation, Breath Sounds Present Cardiovascular: Positive: Normal, RRR Musculoskeletal: Positive: Normal, Strength/ROM Intact Neurological: Positive: Normal, Alert, Oriented to Person Place, Time, CN Intact II-III Psychiatric: Positive: Affect/Mood Appropriate Procedures - Sedation Patient Received Moderate/Deep Sedation with Procedure: No Diagnostics - Vital Signs Vital Signs Temp Pulse Resp BP Pulse Ox 09/02/19 05:43 68 13 136/88 97 09/02/19 05:42 67 12 97 09/02/19 05:26 98.4 F 67 18 139/93 98 - Laboratory Result Diagrams: 09/02/19 06:05 09/02/19 06:05 Lab Statement: Any lab studies that have been ordered have been reviewed, and results considered in the medical decision making process. Course/Dx - Course Course Of Treatment: Pt. with c/o ETOH withdrawl. Pt. is very anxious. Afebrile with stable VS. Pt. given IV fluids and a dose of PO ativan for anxiety. ECG done at 0616 shows a sinus rhythm of 80bpm, normal axis, no STEMI, QTC prolonged. Labs are unremarkable other than mildly low mag. PO mag given. Pt. feeling better after treatment. SW provided pt. with INFO for rehab facilities. To avoid ETOH and drug use. Will return if sxs change or worsen. - Diagnoses Differential Diagnosis/HQI/PQRI: Positive: Alcohol Abuse, Alcohol Withdrawal, Anxiety, Drug Abuse, Drug Withdrawal Provider Diagnoses: Alcohol abuse, Polydrug abuse Discharge ED - Sign-Out/Discharge Documenting (check all that apply): Patient Departure - Discharge Plan Condition: Improved Disposition: HOME Patient Education Materials: Abuse of Alcohol (ED), Polysubstance Abuse (ED) Referrals: [facility] [Outside] [facility], [Z.BUSINESS, APPLICATION, OTHER] - Additional Instructions: Schedule a follow up with the [facility] on Wednesday Avoid drug and alcohol use Follow up with one of the provided drug and alcohol rehab facilities Increase fluids and rest Return to ER if symptoms change or worsen - Billing Disposition and Condition Condition: IMPROVED Disposition: Home - Attestation Statements Provider Attestation: I was available for consult. This patient was seen by the ARMANDO. The patient was not presented to, seen by, or examined by me. Ernst Valdez MD
[2019-09-02] MEDS ORDERED: NS 0.9% 1000 ML** 1,000 ML IV ONE ×2 (05:59)
[2019-09-02] MEDS ORDERED: LORazepam TAB(*) 1 MG PO ONE ×2 (05:59→06:00)
[2019-09-02 06:35] LABS: ABS Basophils 0.1 10^3/ul (0-0.2); ABS Eosinophils 0.1 10^3/ul (0-0.6); ABS Lymphocytes 2.6 10^3/ul (1.0-4.8); ABS Monocytes 0.3 10^3/ul (0-0.8); ABS Neutrophils 2.4 10^3/ul (1.5-7.7); Eosinophil % 1.9 %; Hematocrit 46 % (42-52); Hemoglobin 15.8 g/dL (14.0-18.0); Lymphocyte % 46.7 %; Mean Corpuscular HGB Conc 35 g/dL (31-36); Mean Corpuscular Hemoglobin 31 pg (27-31); Mean Corpuscular Volume 91 fL (80-94); Mean Platelet Volume 8.6 fL (7.4-10.4); Nucleated Red Blood Cells % 0.1; Platelet Count 242 10^3/uL (150-450); Red Blood Count 5.05 10^6 /uL (4.18-5.48); Red Cell Distribution Width 13 % (10-15); White Blood Count 5.5 10^3/uL (3.5-10.8)
[2019-09-02 06:51] LABS: ALT 44 U/L (7-52); AST 25 U/L (13-39); Albumin 4.4 g/dL (3.2-5.2); Albumin/Globulin Ratio 1.9 (1-3); Alkaline Phosphatase 50 U/L (34-104); Anion Gap 7 mmol/L (2-11); Blood Urea Nitrogen 8 mg/dL (6-24); C Reactive Protein < 1.00 mg/L (<8.01); CO2 Carbon Dioxide 29 mmol/L (22-32); Calcium 9.4 mg/dL (8.6-10.3); Chloride 105 mmol/L (101-111); EGFR African American 123.2 (>60); EGFR Non-African American 101.8 (>60); Globulin 2.3 g/dL (2-4); Glucose 106 mg/dL (70-100); Magnesium 1.7 mg/dL (1.9-2.7); Potassium 3.5 mmol/L (3.5-5.0); Sodium 141 mmol/L (135-145); Total Protein 6.7 g/dL (6.4-8.9)
[2019-09-02 06:57] LABS: Alcohol < 10 mg/dL (<10)
[2019-09-02] MEDS ORDERED: Magnesium Oxide TAB* 400 MG PO ONE ×2 (07:05)
[2019-09-02 09:39] VITALS: BP 125/96
== END 2019-09-02 09:18 | disposition home or self-care (01) ==
LOC: ED 05:24
DX: F10.10 Alcohol abuse, uncomplicated (principal); F19.10 Other psychoactive substance abuse, uncomplicated; F17.210 Nicotine dependence, cigarettes, uncomplicated; F41.9 Anxiety disorder, unspecified; R06.02 Shortness of breath; R94.31 Abnormal electrocardiogram [ECG] [EKG]
CPT/HCPCS: 36415; 71045; 80053; 80320; 83735; 84484; 85025; 86140; 93005; 96360; 99282; A9270-GY; G0480

== ENCOUNTER 2019-09-06 21:18 | Emergency (ER) | payer MEDICAID ==
[2019-09-06] MEDS ORDERED: Amoxicillin/Clavulanate TAB* 875 MG PO ONE ×2 (21:41)
--- NOTE | 2019-09-06 21:49 | ED ---
Throat Pain/Nasal Congestion - HPI Summary HPI Summary: 29-year-old male presents to the emergency department today complaining of left ear pain and dizziness. Patient endorses 1210 pain which is made worse with palpation. Patient denies fevers. Patient also endorses mild hearing loss for left side. Patient has no ataxia. Patient is otherwise well and denies fever, chest pain, abdominal pain, pain with urination, nausea, vomiting, diarrhea. Patient states she has been taking his friend's Suboxone for pain. Patient denies antibiotic use in the last 30 days. - History of Current Complaint Chief Complaint: EDEarPain Time Seen by Provider: 09/06/19 21:31 Hx Obtained From: Patient Onset/Duration: Gradual Onset Severity: Mild - Allergies/Home Medications Allergies/Adverse Reactions: Allergies Allergy/AdvReac Type Severity Reaction Status Date / Time No Known Allergies Allergy Verified 09/06/19 21:30 Home Medications: Home Medications Amoxicillin/Clavulanate TAB* [Augmentin TAB 875*] 875 mg PO BID 7 Days #14 tab 09/06/19 [Rx] PMH/Surg Hx/FS Hx/Imm Hx Endocrine/Hematology History: Denies: Hx Diabetes Cardiovascular History: Denies: Hx Congestive Heart Failure, Hx Hypertension Respiratory History: Reports: Hx Asthma History: Denies: Hx Renal Disease Sensory History: Denies: Hx Eye Prosthesis, Hx Deafness Opthamlomology History: Denies: Hx Eye Prosthesis Neurological History: Denies: Hx Dementia Psychiatric History: Reports: Hx of Violent Episodes Against Others, Hx Substance Abuse - ETOH Denies: Hx Eating Disorder - Surgical History Surgery Procedure, Year, and Place: EAR TUBES. DEVIATED SEPTUM REPAIR. LEFT ANKLE - Immunization History Date of Tetanus Vaccine: up to date Infectious Disease History: Yes Infectious Disease History: Denies: Traveled Outside the [place] in Last 30 Days - Family History Known Family History: Positive: Unknown - Patient is adopted, unsure of his FHx. , Other - Bipolar disorder, depression, alcoholism, gram w/ ovarian ca, Non- Contributory - Social History Alcohol Use: " binge drinker" Alcohol Amount: last drink 09/01/2019 0000 Hx Substance Use: Yes Substance Use Type: Reports: Marijuana Hx Tobacco Use: Yes Smoking Status (MU): Current Every Day Smoker Type: Cigarettes Amount Used/How Often: 2-3 CIG/DAY Review of Systems Constitutional: Negative Eyes: Negative Positive: Ear Ache. Negative: Epistaxis, Dental Pain, Sore Throat, Nasal Discharge Cardiovascular: Negative Respiratory: Negative Gastrointestinal: Negative Genitourinary: Negative Musculoskeletal: Negative Skin: Negative Neurological/Mental Status: Negative Psychological: Normal All Other Systems Reviewed And Are Negative: Yes Physical Exam - Summary Physical Exam Summary: Inspection of the right TM shows scarring of the tympanic membrane consistent with history of tympanostomy tubes. Inspection of the left tympanic membrane reveals erythema and bulging of the tympanic membrane. Displacement of light. There is purulent fluid noted in the left tympanic membrane. External auditory canal is free of inflammation or debris. Triage Information Reviewed: Yes Vital Signs On Initial Exam: Initial Vitals Temp Pulse Resp BP Pulse Ox 98.3 F 82 20 136/101 99 09/06/19 21:25 09/06/19 21:25 09/06/19 21:25 09/06/19 21:25 09/06/19 21:25 Vital Signs Reviewed: Yes Appearance: Positive: Well-Appearing, No Pain Distress, Well-Nourished Skin: Positive: Warm, Skin Color Reflects Adequate Perfusion Eyes: Positive: EOMI, ANKITA ENT: Positive: Hearing grossly normal. Negative: TMs normal Respiratory/Lung Sounds: Positive: Clear to Auscultation, Breath Sounds Present Cardiovascular: Positive: RRR, S1, S2 Musculoskeletal: Positive: Strength/ROM Intact Neurological: Positive: Sensory/Motor Intact, Alert, Oriented to Person Place, Time, Normal Gait, Facial Symmetry, Speech Normal Psychiatric: Positive: Anxious. Negative: Depressed AVPU Assessment: Alert Procedures - Sedation Patient Received Moderate/Deep Sedation with Procedure: No Diagnostics - Vital Signs Vital Signs Temp Pulse Resp BP Pulse Ox 09/06/19 21:25 98.3 F 82 20 136/101 99 - Laboratory Lab Statement: Any lab studies that have been ordered have been reviewed, and results considered in the medical decision making process. EENT Course/Dx - Course Course Of Treatment: Patient was evaluated in the emergency department today for left-sided ear pain. Vitals noted and stable. Patient is afebrile. Physical exam was consistent with acute otitis media on the left. Patient was given dose of Augmentin in the emergency department. Patient was given prescription for Augmentin and told to follow-up for further evaluation and management with his PCP. Patient agrees with plan. - Differential Diagnoses Differential Diagnoses: Dental Abscess, Dental Caries, Otitis Externa, Otitis Media - Diagnoses Provider Diagnoses: Otitis media, left - Critical Care Time Critical Care Statement: Critical care time is provided exclusive of any time spent performing procedures. Discharge ED - Sign-Out/Discharge Documenting (check all that apply): Patient Departure - Discharge Plan Condition: Stable Disposition: HOME Prescriptions: Amoxicillin/Clavulanate TAB* [Augmentin TAB 875*] 875 mg PO BID 7 Days #14 tab Patient Education Materials: Ear Infection (ED) Referrals: [facility] [Outside] - 3 Days No Primary Care Phys,NOPCP [Primary Care Provider] - Additional Instructions: Please take antibiotic as directed. Please take ibuprofen 600 mg every 6 hours as needed for pain. Please return to this emergency department immediately should you develop any new or worsening symptoms. Please follow-up with [facility] in 3 days for further evaluation and management. - Billing Disposition and Condition Condition: STABLE Disposition: Home
[2019-09-06 22:03] VITALS: BP 139/74
== END 2019-09-06 22:00 | disposition home or self-care (01) ==
LOC: ED 21:18
DX: H66.92 Otitis media, unspecified, left ear (principal); R42 Dizziness and giddiness; F17.210 Nicotine dependence, cigarettes, uncomplicated; J45.909 Unspecified asthma, uncomplicated
CPT/HCPCS: 99282; A9270-GY

== ENCOUNTER 2019-09-08 05:24 | Emergency (ER) | payer MEDICAID ==
[2019-09-08] MEDS ORDERED: Clindamycin CAP* 150 MG PO ONE (05:50)
[2019-09-08] MEDS ORDERED: Ciproflox/Dexameth OTIC.SUSP* 7.5 ML BTL LEFT EAR ONE (05:50)
--- NOTE | 2019-09-08 05:52 | ED ---
Throat Pain/Nasal Congestion - HPI Summary HPI Summary: Patient is a 29 y/o M presenting to the ED for a chief complaint of left ear pain and left ear drainage. Patient also notes a swollen left ear, lightheadedness, dizziness, and nausea. He reports anxiety that began 2 months ago that has worsened due to a history of recurrent ear infections. Movement of his head worsens the dizziness. Patient has taken Tylenol for the ear pain with some relief. Patient was seen at [facility] on the night of 09/06/19 and diagnosed with a left ear infection for which he was prescribed amoxicillin. He was previously treated with clindamycin for prior ear infections with resolution of the infection. He takes suboxone for a history of alcohol abuse. Suboxone was last taken around 23:00 on 09/07/19. 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 PSHx is significant for ear tube surgery. Patient tested negative for COVID-19 on 08/13/19. - History of Current Complaint Chief Complaint: EDEarPain Time Seen by Provider: 09/08/19 05:33 Hx Obtained From: Patient Onset/Duration: Sudden Onset, Still Present Severity: Moderate Related History: Prior ENT Surgery - Ear tubes, Other (Noted In Comments) - Recurrent ear infection history - Allergies/Home Medications Allergies/Adverse Reactions: Allergies Allergy/AdvReac Type Severity Reaction Status Date / Time No Known Allergies Allergy Verified 09/06/19 21:30 Home Medications: Home Medications Amoxicillin/Clavulanate TAB* [Augmentin TAB 875*] 875 mg PO BID 7 Days #14 tab 09/06/19 [Rx Confirmed 09/08/19] Ciproflox/Dexameth OTIC.SUSP* [Ciprodex OTIC.SUSP*] 4 drop LEFT EAR BID 7 Days # 1 btl 09/08/19 [Rx] Meclizine TAB* [Antivert 12.5 TAB*] 25 mg PO TID PRN #20 tab 09/08/19 [Rx] clindamycin HCL [Clindamycin HCl] 300 mg PO TID 10 Days #30 capsule 09/08/19 [Rx ] PMH/Surg Hx/FS Hx/Imm Hx Previously Healthy: Yes Endocrine/Hematology History: Denies: Hx Diabetes Cardiovascular History: Denies: Hx Congestive Heart Failure, Hx Hypertension Respiratory History: Reports: Hx Asthma History: Denies: Hx Renal Disease Sensory History: Denies: Hx Eye Prosthesis Opthamlomology History: Denies: Hx Eye Prosthesis EENT History: Reports: Other - Recurrent ear infection Neurological History: Denies: Hx Dementia Psychiatric History: Reports: Hx of Violent Episodes Against Others, Hx Substance Abuse - ETOH Denies: Hx Eating Disorder - Surgical History Surgical History: Yes Surgery Procedure, Year, and Place: EAR TUBES. DEVIATED SEPTUM REPAIR. LEFT ANKLE - Immunization History Date of Tetanus Vaccine: up to date Infectious Disease History: No Infectious Disease History: Denies: Traveled Outside the [place] in Last 30 Days - Family History Known Family History: Positive: Other - Bipolar disorder, depression, alcoholism , gram w/ ovarian ca - Social History Occupation: Employed Full-time Lives: Alone Alcohol Use: " binge drinker" Alcohol Amount: last drink 09/01/2019 0000 Hx Substance Use: Yes Substance Use Type: Reports: Marijuana Substance Use Comment - Amount & Last Used: suboxone from a friend Hx Tobacco Use: Yes Smoking Status (MU): Current Every Day Smoker Type: Cigarettes Amount Used/How Often: 2-3 CIG/DAY Review of Systems Positive: Ear Ache - Left, Other - Positive left ear drainage and swelling of left ear Positive: Nausea Neurological/Mental Status: Other - Positive lightheadedness and dizziness All Other Systems Reviewed And Are Negative: Yes Physical Exam - Summary Physical Exam Summary: Constitutional: Well-developed, Well-nourished, Alert. (-) Distressed Skin: Warm, Dry HENT: Normocephalic; Atraumatic. Effusion of the left ear, erythema of the canal with discharge, no obvious perforation of the TM, TM appears intact. No mastoid process tenderness. Eyes: Conjunctiva normal Neck: Musculoskeletal ROM normal neck. (-) JVD, (-) Stridor, (-) Tracheal deviation Cardio: Rhythm regular, rate normal, Heart sounds normal; Intact distal pulses; The pedal pulses are 2+ and symmetric. Radial pulses are 2+ and symmetric. (-) Murmur Pulmonary/Chest wall: Effort normal. (-) Respiratory distress, (-) Wheezes, (-) Rales Abd: Soft, (-) tenderness, (-) Distension, (-) Guarding, (-) Rebound Musculoskeletal: (-) Edema Lymph: (-) Cervical adenopathy Neuro: Alert, Oriented x3 Psych: Mood and affect Normal Triage Information Reviewed: Yes Vital Signs On Initial Exam: Initial Vitals Temp Pulse Resp BP Pulse Ox 97.9 F 86 16 124/96 99 09/08/19 05:25 09/08/19 05:25 09/08/19 05:25 09/08/19 05:25 09/08/19 05:25 Vital Signs Reviewed: Yes Procedures - Sedation Patient Received Moderate/Deep Sedation with Procedure: No Diagnostics - Vital Signs Vital Signs Temp Pulse Resp BP Pulse Ox 09/08/19 05:25 97.9 F 86 16 124/96 99 - Laboratory Lab Statement: Any lab studies that have been ordered have been reviewed, and results considered in the medical decision making process. EENT Course/Dx - Course Course Of Treatment: Patient is a 29 y/o M presenting to the ED for a chief complaint of left ear pain and left ear drainage. Patient also notes a swollen left ear, lightheadedness, dizziness, and nausea. He reports anxiety that began 2 months ago that has worsened due to a history of recurrent ear infections. Movement of his head worsens the dizziness. Patient has taken Tylenol for the ear pain with some relief. Patient was seen at [facility] on the night of 09/06/19 and diagnosed with a left ear infection for which he was prescribed amoxicillin. He was previously treated with clindamycin for prior ear infections with resolution of the infection. He takes suboxone for a history of alcohol abuse. On exam, effusion of the left ear, erythema of the canal with discharge, no obvious perforation of the TM, TM appears intact. No mastoid process tenderness. In the ED course, patient was given Ciprofloxacin 4 drop LEFT EAR and Clindamycin 300 mg PO. Patient will be discharged with a diagnosis of otitis media and otitis externa. Follow up with PCP in 1 day. - Diagnoses Provider Diagnoses: Otitis media, Otitis externa - Critical Care Time Critical Care Statement: Critical care time is provided exclusive of any time spent performing procedures. Discharge ED - Sign-Out/Discharge Documenting (check all that apply): Patient Departure - Discharge - Discharge Plan Condition: Stable Disposition: HOME Prescriptions: Ciproflox/Dexameth OTIC.SUSP* [Ciprodex OTIC.SUSP*] 4 drop LEFT EAR BID 7 Days # 1 btl clindamycin HCL [Clindamycin HCl] 300 mg PO TID 10 Days #30 capsule Meclizine TAB* [Antivert 12.5 TAB*] 25 mg PO TID PRN #20 tab PRN Reason: Vertigo Patient Education Materials: Ear Infection (ED) Print Language: YAKUT [facility]errals: [facility] [Outside] Additional Instructions: You should not take the Meclizine with medications like suboxone. - Billing Disposition and Condition Condition: STABLE Disposition: Home - Attestation Statements Document Initiated by Scribe: Yes Documenting Scribe: Trini Doss Provider For Whom Zaneibe is Documenting (Include Credential): Ramandeep Turcios MD Scribe Attestation: ITrini, scribed for Ramandeep Quezada MD on 09/08/19 at 0646. Scribe Documentation Reviewed: Yes Provider Attestation: The documentation as recorded by the Trini gar accurately reflects the service I personally performed and the decisions made by me, Ramandeep Quezada MD Status of Scribe Document: Viewed
[2019-09-08 06:32] VITALS: BP 124/85
== END 2019-09-08 06:32 | disposition home or self-care (01) ==
LOC: ED 05:24
DX: H60.92 Unspecified otitis externa, left ear (principal); H66.92 Otitis media, unspecified, left ear; H92.02 Otalgia, left ear; R11.0 Nausea; F17.210 Nicotine dependence, cigarettes, uncomplicated
CPT/HCPCS: 99282; A9270-GY

== ENCOUNTER 2019-12-01 20:31 | Observation (INO) ==
[2019-12-01] MEDS ORDERED: Diazepam 5 mg TAB (*) PO ONE (22:32)
[2019-12-02] MEDS ORDERED: Prochlorperazine 5 mg/ml 2 ml VIAL (10 mg) IV ONE (02:07)
[2019-12-02] MEDS ORDERED: NS 0.9% 1000 ml BAG 1,000 ML IV ONE (02:08)
[2019-12-02 02:57] LABS: ABS Lymphocytes 1.3 10^3/ul (1.0-4.8); ABS Monocytes 0.2 10^3/ul (0-0.8); Eosinophil % 0.5 %; Hematocrit 45 % (42-52); Hemoglobin 15.6 g/dL (14.0-18.0); Lymphocyte % 20.4 %; Mean Corpuscular HGB Conc 35 g/dL (31-36); Mean Corpuscular Hemoglobin 31 pg (27-31); Mean Corpuscular Volume 90 fL (80-94); Mean Platelet Volume 8.5 fL (7.4-10.4); Platelet Count 197 10^3/uL (150-450); Red Blood Count 5.04 10^6 /uL (4.18-5.48); Red Cell Distribution Width 13 % (10-15); White Blood Count 6.2 10^3/uL (3.5-10.8)
[2019-12-02 02:58] LABS: Urine Appearance Clear; Urine Bilirubin Negative (Negative); Urine Blood Negative (Negative); Urine Color Yellow; Urine Glucose Negative (Negative); Urine Ketones Trace (Negative); Urine Nitrite Negative (Negative); Urine Protein Negative (Negative); Urine Specific Gravity 1.015 (1.010-1.030); Urine Urobilinogen Negative (Negative)
[2019-12-02 03:13] LABS: Albumin 4.5 g/dL (3.2-5.2); BUN/Creatinine Ratio 16.5 (8-20); Calcium 9.1 mg/dL (8.6-10.3); EGFR African American 129.9 (>60); EGFR Non-African American 107.3 (>60); Globulin 2.2 g/dL (2-4); Potassium 3.7 mmol/L (3.5-5.0); Total Bilirubin 1.1 mg/dL (0.2-1.0); Total Protein 6.7 g/dL (6.4-8.9)
[2019-12-02] MEDS ORDERED: Diazepam 5 mg TAB (*) PO PRN (03:37)
[2019-12-02] MEDS ORDERED: NS 0.9% 1000 ml BAG 1,000 ML IV SCH (03:45)
[2019-12-02] MEDS: Buprenorp/Nalox 8-2 MG FILM SL FILM SCH ×2 (08:43→11:29)
[2019-12-02 12:05] LABS: Magnesium 1.9 mg/dL (1.9-2.7)
[2019-12-02] MEDS: Buprenorp/Nalox 4-1 MG FILM SL FILM SCH ×2 (12:36→18:16)
[2019-12-02] MEDS ORDERED: Magnesium Sulfate 2 gm BAG 2 GM/50 ML BAG ONE (13:26)
[2019-12-02] MEDS ORDERED: Magnesium Sulfate 2 gm BAG 2 GM/50 ML BAG IVPB ONE (14:00)
[2019-12-02] MEDS: Ofloxacin 0.3% (Ear Drop) BTL LEFT EAR SCH (20:49)
[2019-12-03] MEDS ORDERED: Nicotine Lozenge mini 2 MG LOZNG.MINI MT PRN (04:22)
[2019-12-03] MEDS ORDERED: Nicotine GUM 2MG FRUIT FLAVOR PO PRN (04:22)
[2019-12-03 08:55] VITALS: BP 115/64
[2019-12-03] MEDS: Ofloxacin 0.3% (Ear Drop) BTL LEFT EAR SCH (09:05)
[2019-12-03] MEDS: Buprenorp/Nalox 4-1 MG FILM SL FILM SCH (11:11)
== END 2019-12-03 11:17 | disposition home or self-care (01) ==
LOC: MEDTELE 20:31 → ED 20:31 → MEDTELE 12-02 04:50
PROVIDERS: ADMIT Hospitalist; ATTEND Internal Medicine